=== PATIENT | male | born 1955 | race Caucasian/White ===

== ENCOUNTER 2016-11-01 14:30 | Inpatient (IN) | payer BC ==
[~2016-11-01] VITALS: Ht 175.3 cm; Wt 90.8 kg
--- NOTE | ~2016-11-01 | ENPV ---
Vascular Lower Extremity Vein Mapping and Lower Extremities DVT Study Procedure Demographics Patient Name DAVID MCKEON Date of Study 11/02/2016 Patient Number [id number] Gender Male Date of 1955 Age 61 Visit Number [id number] Height 69 Accession Number [id number] Weight 206.35 Referring Vinh Byrne Interpreting Efstratiou [employer] Physician DO Physician A Physician Ordering Efstrati[employer] Attendant Physician A Photovoltaic Subcontractor Víctor Villalobos, T Conclusions Summary No evidence of deep vein thrombosis or superficial thrombus in bilateral lower extremities. Bilateral greater saphenous veins are patent and suitable for harvesting Procedure Type of Study: Veins:Lower Extremity Vein Mapping, Vein Mapping, Lower Extremities DVT Study, Venous Duplex Lower Extremity Bilateral. Indications for Study:Pre-op CABG, Pre-op evaluation and Pre-op for vein harvesting. Appropriate Use Criteria:7 Allergies - Other:(Cefadroxil). Patient Status:Routine. Study Location:Inpatient Portable. Technical Quality:Adequate visualization. Risk Factors - The patient's risk factor(s) include: dyslipidemia and treated arterial hypertension. - The patient's last creatinine was 0.9 mg/dl. Velocities are measured in cm/s ; Diameters are measured in cm Right Lower Extremities DVT Study Measurements Right 2D and Doppler Measurements + + + + +------+------+ + !Location !Visualized!Compressibility!Thrombosis!Signal!Reflux!Reflux ! ! ! ! ! ! ! !(sec) ! + + + + +------+------+ + !GSV Thigh !Yes !Yes !None !Phasic!No ! ! + + + + +------+------+ + !Common !Yes !Yes !None !Phasic!No ! ! !Femoral ! ! ! ! ! ! ! + + + + +------+------+ + !Prox !Yes !Yes !None !Phasic!No ! ! !Femoral ! ! ! ! ! ! ! + + + + +------+------+ + !Mid Femoral!Yes !Yes !None !Phasic!No ! ! + + + + +------+------+ + !Dist !Yes !Yes !None !Phasic!No ! ! !Femoral ! ! ! ! ! ! ! + + + + +------+------+ + !Popliteal !Yes !Yes !None !Phasic!No ! ! + + + + +------+------+ + !Gastroc !Yes !Yes !None ! ! ! ! + + + + +------+------+ + !PTV !Yes !Yes !None ! ! ! ! + + + + +------+------+ + !Peroneal !Yes !Yes !None ! ! ! ! + + + + +------+------+ + Left Lower Extremities DVT Study Measurements Left 2D and Doppler Measurements + + + + +------+------+ + !Location !Visualized!Compressibility!Thrombosis!Signal!Reflux!Reflux ! ! ! ! ! ! ! !(sec) ! + + + + +------+------+ + !GSV Thigh !Yes !Yes !None !Phasic!No ! ! + + + + +------+------+ + !Common !Yes !Yes !None !Phasic!No ! ! !Femoral ! ! ! ! ! ! ! + + + + +------+------+ + !Prox !Yes !Yes !None !Phasic!No ! ! !Femoral ! ! ! ! ! ! ! + + + + +------+------+ + !Mid Femoral!Yes !Yes !None !Phasic!No ! ! + + + + +------+------+ + !Dist !Yes !Yes !None !Phasic!No ! ! !Femoral ! ! ! ! ! ! ! + + + + +------+------+ + !Popliteal !Yes !Yes !None !Phasic!No ! ! + + + + +------+------+ + !Gastroc !Yes !Yes !None ! ! ! ! + + + + +------+------+ + !PTV !Yes !Yes !None ! ! ! ! + + + + +------+------+ + !Peroneal !Yes !Yes !None ! ! ! ! + + + + +------+------+ + Velocities are measured in cm/s ; Diameters are measured in cm + ++--------++--------+ !Superficial - Great Saphenous Vein !!Right !!Left ! + ++--------++--------+ !Location !!Diameter!!Diameter! + ++--------++--------+ !Sapheno Femoral Junction !!0.51 !!0.44 ! + ++--------++--------+ !GSV High Thigh !!0.41 !!0.4 ! + ++--------++--------+ !GSV Mid Thigh !!0.34 !!0.3 ! + ++--------++--------+ !GSV Low Thigh !!0.36 !!0.3 ! + ++--------++--------+ !GSV Knee !!0.29 !!0.36 ! + ++--------++--------+ !GSV High Calf !!0.27 !!0.19 ! + ++--------++--------+ !GSV Mid Calf !!0.32 !!0.14 ! + ++--------++--------+ !GSV Low Calf !!0.2 !!0.2 ! + ++--------++--------+ - Number of vein branches on the right side:2 above knee and 3 below knee. - Number of vein branches on the left side:1 above knee and 1 below knee. Signature dtt: Christa Mendoza dtd: 11/02/16 1434 Physician Self Edit
--- NOTE | ~2016-11-01 | CON ---
PATIENT'S NAME: MIKE [facility] AGE: 61 Y [address] ROOM: [address] [place], [place] [address] LOCATION: GPCU ADMIT DATE: 11/01/2016 Consultation DISCHARGE DATE: FAMILY PHYSICIAN: Siddharth Driver MD ATTENDING PHYSICIAN: Christa Mendoza DATE OF CONSULTATION: 11/02/2016 REFERRING PHYSICIAN: Davie Sanabria DO REQUESTING PHYSICIAN: Christa Mendoza MD. REASON FOR CONSULTATION: Multivessel coronary artery disease/non-STEMI. HISTORY OF PRESENT ILLNESS: The patient is a 61-year-old white male from [place], [place], with a known history of severe coronary artery disease with prior myocardial infarctions x4, with admission today with a non-STEMI. This is a gentleman who has been experiencing, over the last 2 weeks, symptoms of severe heartburn. He has also had an increase in his shortness of breath. This shortness of breath has been ongoing for several months, but has worsened over the last few weeks. The patient had recently undergone a lumbar surgery with Dr. Carreno. He had no issues postoperatively and has been a couple of weeks in the postoperative phase. He really had not experienced much for chest pain, chest pressure, or palpitations. He was admitted by Dr. Mendoza with findings of increase in his troponin and given his symptomatology with shortness of breath, and further workup. He underwent a cardiac catheterization with findings of 100% occluded right and 4 of the left-sided arteries at greaterthan 90% occlusion. EF is at about 35%. Given the severity, Dr. Mendoza recommended the patient be seen in consultation by Cardiothoracic Surgery to discuss surgical revascularization. PAST MEDICAL HISTORY: Illnesses: Dyslipidemia, coronary artery disease, nephrolithiasis, prior myocardial infarction x5, ischemic cardiomyopathy, GERD/heartburn, osteoarthritis, and dyspnea on exertion. SURGERY/PROCEDURES: Previous percutaneous intervention with stent placement to LAD and RCA, bilateral carpal tunnel release, hiatal hernia repair, left knee scope, lumbar surgery in September 2016, left C6/C7 posterior foraminotomy, and AICD placement. ALLERGIES: HE HAS AN INTOLERANCE TO CEFADROXIL, WHICH CAUSES NAUSEA AND VOMITING. PATIENT'S NAME: ZYWIEC, [facility] AGE: 61 Y [address] ROOM: [address] [place], [place] [address] [facility] ADMIT DATE: 11/01/2016 Consultation DISCHARGE DATE: FAMILY PHYSICIAN: Siddharth Driver MD ATTENDING PHYSICIAN: Christa Mendoza SOCIAL HISTORY: The patient resides in [place], [place]. 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 He is . He has a significant other. He has grown children. He has history of having smoked for approximately 10 years, he quit 17 years ago, he did smoke a pack and half of cigarettes a day. He occasionally drinks alcohol. FAMILY HISTORY: Significant for his father having from a myocardial infarction at age 39. His mother does have history with dementia, she is still alive. His brother at age 40 from a myocardial infarction. On his dad's side of the family, most of the angles and cousins have perished as a result of sudden myocardial infarction. HOME MEDICATIONS: 1. Aspirin 81 mg daily. 2. Nexium 20 mg daily. 3. Ibuprofen 800 mg b.i.d. 4. Melatonin 10 mg at h.s. 5. Tramadol 25 mg q.8 hours. SYSTEM REVIEW: GENERAL: No change in weight or appetite. No fever, chills, or sweats. No excessive fatigue. The patient has felt that he has been able to do his job with relatively no issues. He has not had a lot of excessive stress. He has noticed, however, more progressive dyspnea. HEENT: Does have some age-related vision changes. Does wear glasses. No hearing complaints. No difficulty swallowing, change in voice or hoarseness. RESPIRATORY: No unusual cough or wheezing. He is short of breath at times and as previously stated, dyspneic on exertion, which has become progressive. No PND or orthopnea. CARDIOVASCULAR: No overt chest pain, chest pressure, palpitations, that he could attribute to cardiac chest pain, however in hindsight, he has been having what he could think was indigestion. No intermittent claudication. No complaints of persistent lower extremity edema. GI: No ongoing nausea, vomiting, constipation, or diarrhea. He has been having some reflux and heartburn symptoms here recently. He does take ibuprofen pretty routinely. : Has a history of kidney stones. MUSCULOSKELETAL: Does have ongoing back, neck, and hip pain, and has had previous back and neck surgery. He does not require assistive devices for ambulation. NEUROLOGIC: No frequent or severe headaches. No history of seizures, memory loss, or syncope. He does have some left-sided numbness and tingling in his PATIENT'S NAME: DAVID MCKEON [facility] AGE: 61 Y [address] ROOM: [address] [address] [facility] ADMIT DATE: 11/01/2016 Consultation DISCHARGE DATE: FAMILY PHYSICIAN: Siddharth Driver MD ATTENDING PHYSICIAN: Christa Mendoza left hand. ENDOCRINE: No history of diagnosed thyroid or diabetic conditions. INTEGUMENT: No known skin diseases. PHYSICAL EXAMINATION: VITAL SIGNS: Blood pressure is 120/79, pulse 66, respirations 20, temperature is 97.6, and O2 saturations 95% on room air. His weight 93.6 kg, height is 175.3 cm. GENERAL: He is very pleasant. He is in no acute distress. He is a bit anxious regarding the procedure that he is eager to move forward. He appears his stated age. HEENT: Normocephalic. EOMs intact. Conjunctivae clear. NECK: No palpable lymphadenopathy or thyromegaly. LUNGS: Clear to auscultation to the anterior and bilaterally. CARDIOVASCULAR: Regular rate and rhythm. ABDOMEN: Soft, nontender by 4 quadrants with positive bowel sounds throughout. The patient has a healed surgical site to his back. EXTREMITIES: No overt varicosities or edema. MUSCULOSKELETAL: Good range of motion of bilateral upper and lower extremities. NEUROLOGIC: Alert and oriented with symmetrical strength. SKIN: No suspicious skin lesions. LABORATORY AND TEST RESULTS: Cardiac catheterization is as per HPI. BMP: Sodium is 140, potassium is 3.9, BUN is 18, creatinine is 1.0, GFR is at 82. His TSH is 3.120. ProBNP is 351. Troponin I 0.220, his CK-MB is 1.7, his CPK is 105. CBC: WBC 11.6, hemoglobin 15.5, hematocrit 44.7, and platelets 193. IMPRESSION: 1. Non-ST elevation myocardial infarction with prior history of myocardial infarctions and coronary artery disease, severe. 2. Ischemic cardiomyopathy with reduced ejection fraction and history of implantable cardioverter-defibrillator placement, for which we will obtain interrogation of the implantable cardioverter-defibrillator. 3. Dyspnea on exertion. RECOMMENDATION AND PLAN: Dr. Sanabria reviewed the cardiac catheterization. Per review, the patient will require a 5-vessel bypass. Risks and benefits of the procedure were discussed. Discussion of the risks includes but were not limited to, bleeding, requiring transfusion, return to the operative suite, myocardial infarction, cerebrovascular accident, renal and/or pulmonary failure. Also discussed were operative and postoperative mortality as well as arrhythmias and infection. PATIENT'S NAME: DAVID MCKEON [facility] AGE: 61 Y [address] ROOM: [place] [address] [facility] ADMIT DATE: 11/01/2016 Consultation DISCHARGE DATE: FAMILY PHYSICIAN: Siddharth Driver MD ATTENDING PHYSICIAN: Christa Mendoza The patient verbalizes understanding of the surgical risks and benefits. Length of stay as well as restrictions thereafter were discussed. We will plan the preoperative evaluation today with surgery for November 03, 2016. We would like to thank Dr. Mendoza for allowing us to participate in the care of this very pleasant gentleman. FELIICANO SEPULVEDA APRN FOR DAVIE SANABRIA, DLQ/modl /[id number] d: 11/02/16 1950 t: 11/14/16 0826, CONSULTATION REPORT
--- NOTE | ~2016-11-01 | CATH ---
Cardiac Diagnostic Report Demographics Patient Name MIKE Juárez Gender Male Date of 1955 Age 61 year(s) Patient Number [id number] Date of Study 11/01/2016 Visit Number [id number] Room Number G62[address] [place] [id number] Ht 175.26 cm Wt 93.6 kg Referring [facility] Harjeet Primary Physician Physician Performing Efstratiou Secondary Physician Physician Cathy Howard MD Diagnostic Efstratiou Assisting Physician Physician Cathy Howard MD Interventional Physician Erp Implementation Consultant Physician Findings and Conclusions Diagnostic Findings and Conclusion 1. Mild MR. 2. Severe diffuse 3 vessel CAD with LV dysfunction. Diagnostic Recommendations 1. CABG. Procedure Description The patient was brought to the diagnostic cardiac catheterization-EP laboratory in the fasting, non-sedated state. Informed consent was obtained in the written and verbal form after the risks and benefits were explained. The patient had no further questions and agreed to proceed. The planned puncture-incision site(s) were shaved and prepped with ChloraPrep and draped in the usual sterile manner. Conscious sedation, supplemental oxygen, and pain control medications were delivered by a registered nurse under physician guidance. Surface ECG rhythm, blood pressure measurement, and pulse oximetry were monitored throughout the procedure. Arterial access. The access site was infiltrated with lidocaine. The vessel was entered with the Seldinger technique. A sheath was advanced into the vessel and used for catheter placement. Selective left coronary angiography. A catheter was advanced into the left coronary vessel ostium under Fluoroscopic guidance. Contrast was injected by hand. Images were obtained in multiple projections. Selective right coronary angiography. A catheter was advanced into the right coronary vessel ostium under fluoroscopic guidance. Contrast was injected by hand. Images were obtained in multiple projections. Left heart catheterization with ventriculography. A catheter was advanced across the aortic valve to the left ventricle under fluoroscopic guidance. Resting hemodynamics were obtained. With the catheter at the left ventricular apex, contrast was injected. Images were obtained in PERSIAN projections. Post-ventriculography LV pressure was obtained. The catheter was gradually withdrawn into the aorta with continuous pressure recording. Arterial artery hemostasis was achieved. The patient was transferred to a regular nursing floor via cart accompanied by a nurse. The patient left the laboratory in stable condition. Diagnostic Cath Status: Urgent Procedure Procedure Type Diagnostic procedure:Ventriculogram:, Left, Angiography:, C Indications: NSTEMI. The procedure was explained in detail to the patient. Risks, complications and alternative treatments were reviewed. Written consent was obtained. Medications Reviewed with Patient prior to Procedure. Angiographic Findings Dominance: Right Cardiac Arteries and Lesion Findings LMCA: Normal (0% Stenosis). LAD: Abnormal.There is a previous stent on Prox LAD Proximal subsection. Lesion on Prox LAD: Proximal subsection.90% stenosis . Pre procedure DAGOBERTO I flow was noted. A poor run off was present. Lesion on 1st Diag: Proximal subsection.95% stenosis . Pre procedure DAGOBERTO I flow was noted. A poor run off was present. LCx: Abnormal. Lesion on Mid CX: Mid subsection.70% stenosis . Pre procedure DAGOBERTO I flow was noted. A poor run off was present. Lesion on 1st Ob Jodee: Proximal subsection.95% stenosis . Pre procedure DAGOBERTO I flow was noted. A good run off was present. Lesion on 2nd Ob Jodee: Proximal subsection.95% stenosis . Pre procedure DAGOBERTO I flow was noted. A poor run off was present. Lesion on Dist CX: Distal subsection.95% stenosis . Pre procedure DAGOBERTO I flow was noted. A poor run off was present. RCA: Abnormal.There is a previous stent on Prox RCA Proximal subsection. Lesion on Prox RCA: Proximal subsection.100% stenosis . Pre procedure DAGOBERTO 0 flow was noted. A poor run off was present. Coronary Tree Procedure Data Procedure Date Date: 11/01/2016Start: 05:21 PMEnd: 06:09 PM Entry Locations - Retrograde Percutaneous access was performed through the Right Radial artery (Primary location). A 6 Fr sheath was inserted. Hemostasis was successfully obtained using an R band. Closure Comments: 13 cc of air in the R band placed by Preethi Chavira.. Procedure Medications Order and Administration + + +-------+-------+ !Time !Medication !Dosage !Route ! + + +-------+-------+ !11/01/2016 !Fentanyl !50 mcg !I.V. ! !05:19 PM ! ! ! ! + + +-------+-------+ !11/01/2016 !Versed !1 mg !I.V. ! !05:19 PM ! ! ! ! + + +-------+-------+ !11/01/2016 !PAE Radial Cocktail: Heparin 5000 units, ! !I.A. ! !05:22 PM !Nitroglycerin 200mcg, Verapamil 3 mg ! ! ! ! !(ACC_3) ! ! ! + + +-------+-------+ Devices Used - A6 Fr. BS JR 4 Diag. Catheterwas used for:Right coronary angiography. - A6 Fr. BS JL 3.5 Diag. Catheterwas used for:Left coronary angiography. - A6 Fr. BS Angled Pigtail Diag. Catheterwas used for:Left ventriculography. Contrast Material - Isovue 54169 ml Fluoroscopy Time: Diagnostic: 4:42 minutes. Total: 4:42 minutes. Fluoroscopy Dose: Diagnostic: 807 mGy. Total: 807 mGy. Estimated Blood Loss: 15 ml. Medical History Performed Procedures and Imaging Results - No ACC stress or imaging studies were performed. Allergies - Other:(Cefadroxil). Risk Factors The patient risk factors include:prior PCI;treated hypertension, family history of premature CAD, last creatinine: 0.9 mg/dl, creatinine clearance: 117 ml/min and dyslipidemia. Admission Data Admission Date: 11/01/2016 Admission Time: 03:09 PM Admit Source: Transfer acute care facility Insurance Payors: Private health insurance. Admission Medications + +------+-------+ + + + + !Medication!Dosage!Times !Last !Last !Administered !Comments ! ! ! !Per Day!Delivery !Delivery ! ! ! ! ! ! !Date !Time ! ! ! + +------+-------+ + + + + !Aspirin ! ! ! ! !Yes ! ! !(any) ! ! ! ! ! ! ! + +------+-------+ + + + + Clinical Evaluation Leading to Procedure - The patient's CAD presentation was assessed as: Non-STEMI. - The patient's anginal syndrome during the past two weeks was assessed as: Class IV according to the [place] Cardiovascular Society Classification System (CCS). - The patient has been in a state of heart failure within the past two weeks. - The patient's heart failure status was assessed as NYHA Class II, with CHF symptoms of SALAZAR. VA Ventriculography Findings LV mildly to moderately dilated EF 25%. Akinetic to mildly dyskinetic apex. Inferobasal wall contracts well. LV function assessed . Snapshots Hemodynamics Condition: Rest O2 Consumption: Estimated: 246.11Heart Rate: 70 bpm Pressures (mmHg) +-----+ + !Site !Pressure ! +-----+ + !LV !108/-2 ,1 ! +-----+ + !LV !110/-2 ,0 ! +-----+ + !AO !100/66 (81) ! +-----+ + !LV !110/-2 ,1 ! +-----+ + !AO !99/65 (80) ! +-----+ + Valve Gradients and Areas + +---------+---------+---------+ +---------+ + !Valve !Peak !Mean !Area !Index !Flow !Source ! + +---------+---------+---------+ +---------+ + !Aortic !10 !8 ! ! ! ! ! + +---------+---------+---------+ +---------+ + !Aortic !10 !8 ! ! ! ! ! + +---------+---------+---------+ +---------+ + Shunts Oxygen Values O2 Capacity 221.68 O2 Consumption 246.11 Signatures dtt: Christa Mendoza dtd: 11/01/16 1721 Physician Self Edit
--- NOTE | ~2016-11-01 | OR ---
PATIENT'S NAME: DAVID MCKEON [facility] AGE: 61 Y [address] ROOM: [address] [address] LOCATION: GPCU ADMIT DATE: 11/01/2016 OR/Procedure Report DISCHARGE DATE: 11/09/2016 FAMILY PHYSICIAN: Siddharth Driver MD ATTENDING PHYSICIAN: Christa Mendoza SURGEON: Maddie Stringer MD MANAGER QUANTITATIVE: DATE OF PROCEDURE: 11/03/2016 PROCEDURES PERFORMED: 1. Insertion of central venous catheter. 2. Insertion of arterial line. 3. Insertion of pulmonary arterial catheter. INDICATION FOR PROCEDURE: Hemodynamic monitoring and access while in the operating room. DESCRIPTION OF PROCEDURE: After a brief time-out was completed verifying the correct patient, procedure, site, the patient was placed in the dependent position appropriate for central line placement. The patient's right neck was prepped and draped in the usual sterile fashion. 1 mL of 1% lidocaine was used to anesthetize the surrounding skin. Using the Seldinger technique and under real-time ultrasound guidance, a 9-Dominican, 10-cm introducer was introduced into the patient's right internal jugular vein. The guidewire then was removed. Each lumen of the catheter was evacuated from air and flushed with sterile saline. The catheter then was sutured in place and a sterile Tegaderm applied. Attention was turned to placing the pulmonary arterial catheter which was inserted into the 9-Dominican introducer. The catheter was inserted to 20 cm and the balloon was inflated. The catheter then was advanced to the right atrium and then finally to the right ventricle, and finally into the pulmonary artery, where it was not wedged. Balloon was then deflated. The catheter then was secured into place at 50 cm. Next, the patient's right wrist was prepped and draped in the usual sterile fashion. 1 mL of 1% lidocaine was used to anesthetize the surrounding skin. Using a 20- gauge Arrow catheter, the radial artery was cannulated. The guidewire then was removed. The catheter then was sutured in place and a sterile Tegaderm was applied. Pulses distal to the insertion of the catheter were checked and found to be adequate. The postprocedural chest x-ray was used to confirm the central line, pulmonary artery catheter, and no evidence of complication was noted. MADDIE STRINGER MD PATIENT'S NAME: DAVID MCKEON [facility] AGE: 61 Y [address] ROOM: [place] [address] [facility] ADMIT DATE: 11/01/2016 OR/Procedure Report DISCHARGE DATE: 11/09/2016 FAMILY PHYSICIAN: Siddharth Driver MD ATTENDING PHYSICIAN: Christa Mendoza/joyce /[id number] d: 11/10/16 1335 t: 11/13/16 1646, OPERATIVE SUMMARY
--- NOTE | ~2016-11-01 | HP ---
PATIENT'S NAME: DAVID MCKEON [facility] AGE: 61 Y [address] ROOM: [address]6310 [place], [place] [address] [facility] ADMIT DATE: 11/01/2016 History & Physical DISCHARGE DATE: FAMILY PHYSICIAN: PHYSICIAN, UNKNOWN ATTENDING PHYSICIAN: Kiel Browning DATE OF SERVICE: HISTORY OF PRESENT ILLNESS: The patient is a 61-year-old male with chest pain and elevated troponin, who is transferred from [facility]. The patient says that about two weeks ago, he had lower back surgery by Dr. Carreno and preoperatively, his aspirin was stopped for about a week. He was back on his regular medications. He says that he has been several months on tramadol following a previous C-spine surgery and he was trying to wean himself off. He says that he had read that part of the weaning process from tramadol could be heartburn so he first started experiencing "he thought it was heartburn a few days ago," and for the past two days, he was also started on esomeprazole, but today he realized that his symptoms were most likely "angina," he had experience in the past when he had per his own recollection four heart attacks and three stent placements. He mentioned the substernal discomfort to Dr. Carreno and he was sent to [facility]. Because the patient's certified control systems technician is Dr. Garcia, whom he sees in [place], he requested to be transferred to a Facility. REVIEW OF SYSTEMS: With the exception of what is noted in the History of Present Illness is negative. 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 He never smoked. Does not use any alcohol. He is with three grown children and two grandchildren. PAST SURGICAL HISTORY: As mentioned in the History of Present Illness. MEDICATIONS: His outpatient medications include: 1. Aspirin 81 mg daily. 2. Esomeprazole 20 mg daily. 3. Melatonin 10 mg daily. 4. Tramadol 50 mg taking half a tablet every 8 hours. 5. Ibuprofen 200 mg to 800 mg twice a day. PATIENT'S NAME: DAVID MCKEON [facility] AGE: 61 Y [address] ROOM: [facility] [place], [place] [address] [facility] ADMIT DATE: 11/01/2016 History & Physical DISCHARGE DATE: FAMILY PHYSICIAN: PHYSICIAN, UNKNOWN ATTENDING PHYSICIAN: Kiel Browning ALLERGIES: THE PATIENT REPORTS INTOLERANCE TO EVERY STATIN THAT HE HAS TRIED. PAST SURGICAL HISTORY: Also includes placement of cardioverter-defibrillator about 7 to 8 years ago, and he remembers that he was told that his ejection fraction was 25%. He is not on a beta donovan or DU inhibitor. He told me that his previous certified control systems technician, Dr. Ross stopped all his other medications several years ago. PHYSICAL EXAMINATION: VITAL SIGNS: He is a pleasant middle-aged man. Height 5 feet 9 inches tall, weighs 93.6 kg. Blood pressure is 145/88, pulse 84, and temperature 98.2. GENERAL: He is alert and oriented. SKIN: Warm and dry. HEAD: Normocephalic and atraumatic. NECK: Supple. There is no jugular venous distention. No carotid bruits. HEART: Regular with a 4th heart sound. No significant murmur. ABDOMEN: Moderately obese, nontender. CHEST: Lungs are clear to auscultation. EXTREMITIES: Lower extremities; no peripheral edema. Dorsalis pedis pulses are 2+. DIAGNOSTIC STUDIES: Electrocardiogram shows sinus rhythm, previous anterior myocardial infarction. No acute changes. A complete metabolic screen here showed a potassium of 3.9, BUN 18, and creatinine 0.9. Cholesterol 234, HDL 41, and LDL 151. WBC 12.9, hemoglobin 16.3, hematocrit 46.4, and platelets 217,000. His cardiac enzymes were not measured as I ordered, but they were measured at [facility], and CK-MB was normal, troponin I was 0.1 and upper normal is 0.03. IMPRESSION AND PLAN: Unstable angina/nic-YO-selmmrkgt myocardial infarction in a patient with previous apparently multi-vessel coronary artery disease with ischemic cardiomyopathy, and indwelling cardioverter-defibrillator. We will proceed with cardiac catheterization, percutaneous intervention as needed. Postoperatively, I will treat him for his ischemic cardiomyopathy per guidelines. We will check an echocardiogram in the a.m. If he has a significant progression of his coronary artery disease, we will have to see if he can qualify for PCSK9 treatment of his dyslipidemia. Thank you for allowing me to participate in the care of your patient. PATIENT'S NAME: DAVID MCKEON [facility] AGE: 61 Y [address] ROOM: [id number] [place] [id number] LOCATION: [facility] ADMIT DATE: 11/01/2016 History & Physical DISCHARGE DATE: FAMILY PHYSICIAN: PHYSICIAN, UNKNOWN ATTENDING PHYSICIAN: Kiel Browning KIEL BROWNING MD PE/joyce /[id number] D: [id number] T: [id number] HISTORY & PHYSICAL
--- NOTE | ~2016-11-01 | OR ---
PATIENT'S NAME: DAVID MCKEON [facility] AGE: 61 Y [address] ROOM: [address] [address] LOCATION: [facility]PCU ADMIT DATE: 11/01/2016 OR/Procedure Report DISCHARGE DATE: 11/09/2016 FAMILY PHYSICIAN: Siddharth Driver MD ATTENDING PHYSICIAN: Christa Mendoza SURGEON: Davie Justice DO FRAMING AND HANGING: DATE OF PROCEDURE: 11/03/2016 PREOPERATIVE DIAGNOSIS: Coronary artery disease. POSTOPERATIVE DIAGNOSIS: Coronary artery disease. SECONDARY DIAGNOSES: Includes chronic ischemic cardiomyopathy, ejection fraction 20%. PROCEDURE PERFORMED: Coronary artery bypass grafting x5, left internal mammary artery to the left anterior descending, reverse saphenous vein graft to obtuse marginal #1, reverse saphenous vein graft to obtuse marginal #2, reverse saphenous vein graft to obtuse marginal #3, reverse saphenous vein graft to the posterior descending artery. REFERRING PHYSICIAN: Christa Mendoza M.D. BRIEF HISTORY: Mr. Mckeon is a 61-year-old white male with the above-noted diagnosis. He has been brought to the operative suite today after an informed consent was obtained for this procedure. He was sterilely prepped and draped in usual fashion for a sternotomy with lower extremity vein harvest. A sternal incision was made and the sternum was divided in the midline with sternal saw. Ostene and electrocautery were used for hemostasis along the marrow and sternal edges. Concurrently to this, saphenous vein was harvested endoscopically from the lower extremity. Mammary retractor was placed. The left internal mammary artery was identified and then harvested utilizing surgical clips and electrocautery. Prior to its division, the patient was fully heparinized and the mammary was then divided and prepared for bypass. Mammary retractor was then removed and a sternal retractor was placed. The pericardium was opened and a pericardial well was created. Cannulation sutures were placed in the ascending aorta and right atrium for bypass and cardioplegia cannulas, and the patient was cannulated and connected to bypass pump without difficulty. The vein was then prepared for bypass. An adequate ACT had been previously achieved and now cardiopulmonary bypass was initiated. Crossclamp was applied. Antegrade and retrograde cardioplegia were given, along with topical cold saline, the heart arrested without difficulty. Posterior descending artery was identified and an end-to-side vein graft PATIENT'S NAME: DAVID MCKEON [facility] AGE: 61 Y [address] ROOM: [address] [place], [place] [address] LOCATION: [facility]PCU ADMIT DATE: 11/01/2016 OR/Procedure Report DISCHARGE DATE: 11/09/2016 FAMILY PHYSICIAN: Siddharth Driver MD ATTENDING PHYSICIAN: Christa Mendoza anastomosed to this with 7-0 Prolene. It was sized appropriately and connected to the cardioplegia system. Another 500 mL of vein graft and retrograde cardioplegia were given. This was done after each venous distal anastomosis. Similar venous distal anastomoses were then created to each of the obtuse marginal arteries, and then left internal mammary artery was anastomosed to the left anterior descending artery, again in an end-to-side fashion with 7-0 Prolene. With this completed, the bulldog was removed from the internal mammary artery and distal flow was noted as well as an intact anastomosis. The cross-clamp was now removed and a partial occlusion clamp was applied. Our vein grafts were then anastomosed to the ascending aorta with 4-0 punch and 6-0 Prolene. During this time period of partial occlusion, warm blood was given in retrograde fashion, also down the vein grafts. We then removed our partial occlusion clamp and de-aired the grafts, removed the bulldogs, and distal flow was given. The remaining 2 grafts, one was anastomosed with a 4.3 heartstring and 6-0 Prolene and the other was performed in an end-to-side [id number]-xy-ewxn fashion with 7-0 Prolene. Once all vein grafts were created and distal flow was given, we began ventilation and began weaning from cardiopulmonary bypass. We weaned from bypass without difficulty, venous cannula was removed and appropriate volume returned from the pump to the patient. Aortic cannula was now removed and protamine was given. All cannulation sites and distal sites and proximal sites were hemostatic. 2 atrial and 1 ventricular temporary pacemaking wires were placed. 3 chest tubes were placed, 1 left pleural, 1 posterior pericardial, 1 anterior mediastinal. Copious amounts of antibiotic-infused saline was used to irrigate the sternum and mediastinum. Autologous derived growth factor was then instilled into the soft tissues and into the pericardial space and the sternum was approximated with sternal cable system. Soft tissues were then irrigated again and closed in a layered fashion. All instrument, sponge, and needle counts were correct. The patient was transferred to the intensive care unit in stable condition. DO ALLA MORRISON/joyce /[id number] d: 11/16/16 1517 t: 11/18/16 0730, OPERATIVE SUMMARY
--- NOTE | ~2016-11-01 | ENPV ---
Carotid Duplex Study Demographics Patient Name DAVID MCKEON Date of Study 11/02/2016 Patient Number [id number] Gender Male Date of 1955 Age 61 Visit Number [id number] Height 69 Weight 206.35 Number Referring Kelly Morgan Interpreting Kelly Joyotigerry Physician A MD Physician A MD Physician Ordering Bonileopoldotiou Panayotis Dormitory Counselor Physician A Snowmaker Víctor Villalobos, [facility] Conclusions Summary Bilateral proximal internal carotid arteries have mild, 1-39%, stenosis by heterogeneous plaque. Bilateral vertebral arteries are antegrade. Procedure Type of Study: Cerebral:Carotid, Carotid Doppler Bilateral. Indications for Study:Pre-Op CABG and Pre-op evaluation. Appropriate Use Criteria:6 Allergies - Other:(Cefadroxil). Patient Status:Routine. Study Location:Imaging Center. Technical Quality:Adequate visualization. Risk Factors - The patient's risk factor(s) include: dyslipidemia and treated arterial hypertension. - The patient's last creatinine was 0.9 mg/dl. Velocities are measured in cm/s ; Diameters are measured in cm Carotid Right Measurements Carotid Left Measurements + +--------+--------+ + + + +--------+ --------+ + + !Location !PSV !EDV !Angle !%Stenosis ! !Location !PSV ! EDV !Angle !%Stenosis ! + +--------+--------+ + + + +--------+ --------+ + + !Prox CCA !143 !20 !60 ! ! !Prox CCA !96 ! 14 !38 ! ! + +--------+--------+ + + + +--------+ --------+ + + !Dist CCA !88 !19 !60 ! ! !Dist CCA !85 ! 20 !60 ! ! + +--------+--------+ + + + +--------+ --------+ + + !Prox ICA !62 !17 !58 !1-39% ! !Prox ICA !57 ! 17 !60 !1-39% ! + +--------+--------+ + + + +--------+ --------+ + + !Dist ICA !41 !11 !54 ! ! !Dist ICA !48 ! 19 !42 ! ! + +--------+--------+ + + + +--------+ --------+ + + !Prox ECA !100 ! !58 ! ! !Prox ECA !89 ! !60 ! ! + +--------+--------+ + + + +--------+ --------+ + + !Vertebral !33 ! ! ! ! !Vertebral !42 ! !60 ! ! + +--------+--------+ + + + +--------+ --------+ + + !Subclavian !98 ! ! ! ! !Subclavian !173 ! ! ! ! + +--------+--------+ + + + +--------+ --------+ + + - There is antegrade vertebral flow noted on the right side. - There is antegrade verte bral flow noted on the left side. - Add'l Measurements:ICAPSV/CCAPSV 0.44.ICAEDV/CCAEDV 0.86. - Add'l Measurements:ICAPS V/CCAPSV 0.6.ICAEDV/CCAEDV 1.39. Signature dtt: Christa Mendoza dtd: 11/02/16 1422 Physician Self Edit
--- NOTE | ~2016-11-01 | PUL ---
PATIENT'S NAME: DAVID MCKEON [facility] AGE: 61 Y [address] ROOM: [place] [address] LOCATION: GICU ADMIT DATE: 11/01/2016 Pulmonary DISCHARGE DATE: FAMILY PHYSICIAN: JULIA MALIN MD ATTENDING PHYSICIAN: Christa Mendoza NAME OF PROCEDURE: Bedside spirometry DATE OF PROCEDURE: November 02, 2016 TECH: CRISTINE Parekh REASON FOR EXAM: Pre-surgical evaluation PROCEDURE PERFORMED: Spirometry with bronchodilator assessment. RESULTS: The pre bronchodilator FVC was 3.92 liters or 85% of predicted, pre bronchodilator FEV1 was 3.08 liters or 88% of predicted; FEV1/FVC was 78.6% or 104% of predicted. This data did not change significantly following inhaled bronchodilator. PHYSICIAN INTERPRETATION: The above spirometry data are most compatible with normal spirometry. MD ALIYA BERNARDO/[place]field /[id number] dtt: 11/03/16 1636 PAN MEENAKSHI dtd: 11/03/16 0945
[~2016-11-01 14:30] MED LIST: ADVIL200 MG PO; ASPIRIN EC81 MG PO; EXTRA STRENGTH500 MG PO; ULTRAM50 MG PO
[2016-11-01] MEDS ORDERED: NEXIUM 24HR20 M1 PO (15:22)
[2016-11-01] MEDS ORDERED: MELATONIN10 M2 PO (15:24)
[2016-11-01 16:09] LABS: BASOPHIL # 0.1 K/uL (0.0-0.2); BASOPHIL % 0.7 %; EOSINOPHIL # 0.3 K/uL (0.0-0.5); EOSINOPHIL % 2.1 %; HEMATOCRIT 46.4 % (37.0-53.0); HEMOGLOBIN 16.3 g/dL (12.0-17.0); IMMATURE GRANULOCYTE # 0.1 K/uL (0.0-0.3); IMMATURE GRANULOCYTE % 0.9 %; LYMPHOCYTE # 2.5 K/uL (0.8-4.0); LYMPHOCYTE % 19.8 %; MCHC 35.1 gm/dL (32.0-36.5); MCV 88.4 fl (83.0-98.0); MONOCYTE # 0.8 K/uL (0.0-1.0); MONOCYTE % 6.1 %; MPV 10.6 fl (9.4-12.4); NEUTROPHIL # (ANC) 9.1 K/uL (1.4-9.0); NEUTROPHIL % 70.4 %; NRBC % 0 /100WBC (0-0.00); PLATELET COUNT 217 K/uL (150-450); RBC 5.25 M/uL (4.00-6.00); RDW-CV 12.4 % (11.9-14.6); WBC 12.9 K/uL (4.0-11.0)
[2016-11-01 16:17] LABS: INR - (THERAPEUTIC) 0.95 (0.92-1.07); PTT 31 SECONDS (25-32)
[2016-11-01 16:27] LABS: ALBUMIN 3.7 gm/dL (3.5-5.0); ALK PHOS 76 IU/L (33-138); ALT 45 IU/L (12-78); ANION GAP 12.9 (10.0-19.0); AST 21 IU/L (10-40); BLOOD UREA NITROGEN 18 mg/dL (6-24); CALCIUM 8.6 mg/dL (8.5-10.5); CHLORIDE 107 mMol/L (96-110); CO2 24 mMol/L (22-32); CREATININE 0.9 mg/dL (0.6-1.3); POTASSIUM 3.9 mMol/L (3.7-5.1); SODIUM 140 mMol/L (135-145); TOTAL BILIRUBIN 0.5 mg/dL (0.0-1.5); TOTAL PROTEIN 7.1 g/dL (6.0-8.4)
[2016-11-02 04:36] LABS: BASOPHIL # 0.1 K/uL (0.0-0.2); BASOPHIL % 0.6 %; EOSINOPHIL # 0.3 K/uL (0.0-0.5); EOSINOPHIL % 2.2 %; HEMATOCRIT 44.7 % (37.0-53.0); HEMOGLOBIN 15.5 g/dL (12.0-17.0); IMMATURE GRANULOCYTE # 0.1 K/uL (0.0-0.3); IMMATURE GRANULOCYTE % 0.9 %; LYMPHOCYTE # 2.7 K/uL (0.8-4.0); LYMPHOCYTE % 23.7 %; MCH 31.1 pg (27.0-34.0); MCHC 34.7 gm/dL (32.0-36.5); MCV 89.6 fl (83.0-98.0); MONOCYTE # 0.7 K/uL (0.0-1.0); MPV 10.2 fl (9.4-12.4); NEUTROPHIL # (ANC) 7.7 K/uL (1.4-9.0); NEUTROPHIL % 66.6 %; NRBC % 0 /100WBC (0-0.00); PLATELET COUNT 193 K/uL (150-450); RBC 4.99 M/uL (4.00-6.00); RDW-CV 12.5 % (11.9-14.6); WBC 11.6 K/uL (4.0-11.0)
[2016-11-02 04:56] LABS: ANION GAP 10.9 (10.0-19.0); CALCIUM 8.9 mg/dL (8.5-10.5); POTASSIUM 3.9 mMol/L (3.7-5.1)
[2016-11-02 09:49] LABS: BICARBONATE 23.9 mmol/L (18.0-23.0); PCO2 36 mmHg (35-45); PO2 71 mmHg (80-90)
[2016-11-02 13:43] LABS: BILIRUBIN URINE NEGATIVE (NEGATIVE); BLOOD URINE NEGATIVE /UL (NEGATIVE); COLOR URINE YELLOW (YELLOW); GLUCOSE URINE NEGATIVE (NEGATIVE); KETONE URINE NEGATIVE (NEGATIVE); LEUKOCYTES URINE 25 /UL (NEGATIVE); NITRITE URINE NEGATIVE (NEGATIVE); PROTEIN URINE NEGATIVE (NEGATIVE); TURBIDITY URINE CLEAR (CLEAR); UROBILINOGEN URINE NORMAL (NORMAL)
[2016-11-02 13:56] LABS: BACTERIA URINE RARE (NEGATIVE); EPITHELIAL URINE NEGATIVE #/HPF (NEGATIVE); MUCUS URINE 1+ (NEGATIVE); RBC URINE NEGATIVE #/HPF (NEGATIVE); WBC URINE RARE #/HPF (NEGATIVE)
[2016-11-03 13:08] LABS: HEMOGLOBIN 9.4 g/dL (12.0-17.0); MCV 89.7 fl (83.0-98.0); MPV 10.2 fl (9.4-12.4); RDW-CV 12.4 % (11.9-14.6)
[2016-11-03 13:14] LABS: HEMATOCRIT 26.9 % (37.0-53.0); MCH 31.3 pg (27.0-34.0); MCHC 34.9 gm/dL (32.0-36.5); PLATELET COUNT 136 K/uL (150-450); WBC 29.1 K/uL (4.0-11.0)
[2016-11-03 13:22] LABS: PTT 38 SECONDS (25-32)
[2016-11-03 13:23] LABS: PROTIME 14.7 SECONDS (9.8-11.4)
[2016-11-03 13:39] LABS: ALPHA ANGLE 66 degrees; ALPHA ANGLE 67 degrees (70-81); CLOT FORMATION TIME 127 seconds; CLOTTING TIME 288 seconds; CLOTTING TIME 75 seconds (43-82); MAXIMUM CLOT FIRMNESS 53 mm; MAXIMUM CLOT FIRMNESS 56 mm (51-72); MAXIMUM LYSIS 0 %
[2016-11-03 13:47] LABS: BICARBONATE 26.9 mmol/L (18.0-23.0); PCO2 43 mmHg (35-45); PO2 345 mmHg (80-90); SODIUM 138 mEq/L (135-145)
[2016-11-03 13:49] LABS: BICARBONATE 31.9 mmol/L (18.0-23.0); PCO2 53 mmHg (35-45); PO2 302 mmHg (80-90)
[2016-11-03 13:50] LABS: PCO2 50 mmHg (35-45); PO2 263 mmHg (80-90)
[2016-11-03 13:50] LABS: POTASSIUM 5.6 mEq/L (3.7-5.1); SODIUM 134 mEq/L (135-145)
[2016-11-03 13:51] LABS: BICARBONATE 26.2 mmol/L (18.0-23.0); PCO2 48 mmHg (35-45); PO2 218 mmHg (80-90)
[2016-11-03 13:51] LABS: POTASSIUM 5.7 mEq/L (3.7-5.1); SODIUM 135 mEq/L (135-145)
[2016-11-03 13:52] LABS: SODIUM 139 mEq/L (135-145)
[2016-11-03 14:09] LABS: BICARBONATE 24.8 mmol/L (18.0-23.0); PCO2 47 mmHg (35-45)
[2016-11-03 14:10] LABS: PO2 74 mmHg (80-90)
[2016-11-03 14:25] LABS: ANION GAP 12.5 (10.0-19.0); CALCIUM 8.9 mg/dL (8.5-10.5); POTASSIUM 4.5 mMol/L (3.7-5.1)
[2016-11-04 04:13] LABS: BICARBONATE 27.3 mmol/L (18.0-23.0); PCO2 44 mmHg (35-45); PO2 60 mmHg (80-90)
[2016-11-04 04:30] LABS: ANION GAP 11.2 (10.0-19.0); CALCIUM 7.6 mg/dL (8.5-10.5); POTASSIUM 4.2 mMol/L (3.7-5.1)
[2016-11-04 04:33] LABS: HEMATOCRIT 24.9 % (37.0-53.0); HEMOGLOBIN 8.6 g/dL (12.0-17.0); MCH 30.9 pg (27.0-34.0); MCHC 34.5 gm/dL (32.0-36.5); MCV 89.6 fl (83.0-98.0); MPV 10.5 fl (9.4-12.4); RBC 2.78 M/uL (4.00-6.00); RDW-CV 13.1 % (11.9-14.6); WBC 14.4 K/uL (4.0-11.0)
[2016-11-05 04:46] LABS: HEMATOCRIT 24.2 % (37.0-53.0); HEMOGLOBIN 8.4 g/dL (12.0-17.0); MCH 31.7 pg (27.0-34.0); MCHC 34.7 gm/dL (32.0-36.5); MCV 91.3 fl (83.0-98.0); MPV 11.4 fl (9.4-12.4); RBC 2.65 M/uL (4.00-6.00); RDW-CV 13.2 % (11.9-14.6)
[2016-11-05 04:47] LABS: WBC 18.7 K/uL (4.0-11.0)
[2016-11-05 05:03] LABS: ANION GAP 11.5 (10.0-19.0); CALCIUM 8.3 mg/dL (8.5-10.5); POTASSIUM 4.5 mMol/L (3.7-5.1)
[2016-11-07 04:31] LABS: BASOPHIL # 0.1 K/uL (0.0-0.2); BASOPHIL % 0.5 %; EOSINOPHIL # 0.2 K/uL (0.0-0.5); EOSINOPHIL % 1.5 %; HEMATOCRIT 23.6 % (37.0-53.0); IMMATURE GRANULOCYTE # 0.3 K/uL (0.0-0.3); IMMATURE GRANULOCYTE % 2.3 %; LYMPHOCYTE # 2.1 K/uL (0.8-4.0); LYMPHOCYTE % 16.1 %; MCH 31.1 pg (27.0-34.0); MCHC 33.9 gm/dL (32.0-36.5); MCV 91.8 fl (83.0-98.0); MONOCYTE # 1.1 K/uL (0.0-1.0); MONOCYTE % 8.4 %; MPV 11.2 fl (9.4-12.4); NEUTROPHIL # (ANC) 9.4 K/uL (1.4-9.0); NEUTROPHIL % 71.2 %; NRBC % 0.7 /100WBC (0-0.00); RBC 2.57 M/uL (4.00-6.00); RDW-CV 13.6 % (11.9-14.6); WBC 13.3 K/uL (4.0-11.0)
[2016-11-07 04:32] LABS: PLATELET COUNT 194 K/uL (150-450)
[2016-11-07 04:48] LABS: ANION GAP 11.7 (10.0-19.0); BLOOD UREA NITROGEN 26 mg/dL (6-24); CALCIUM 7.8 mg/dL (8.5-10.5); CHLORIDE 103 mMol/L (96-110); CO2 26 mMol/L (22-32); CREATININE 0.9 mg/dL (0.6-1.3); POTASSIUM 3.7 mMol/L (3.7-5.1); SODIUM 137 mMol/L (135-145)
[2016-11-09] MEDS ORDERED: CORDARONE,PACE200 MG PO (09:32)
[2016-11-09] MEDS ORDERED: LIPITOR80 MG PO (09:33)
[2016-11-09] MEDS ORDERED: COREG 3.1253.125 MG PO (09:33)
[2016-11-09] MEDS ORDERED: COLACE100 MG PO (09:35)
[2016-11-09] MEDS ORDERED: COLCHICINE0.6 MG PO (09:36)
[2016-11-09] MEDS ORDERED: INSPRA25 MG PO (09:37)
[2016-11-09] MEDS ORDERED: PRINIVIL (ZESTRI5 MG PO (09:40)
[2016-11-09] MEDS ORDERED: MILK OF MA400 MG/5 M PO (09:44)
[2016-11-09] MEDS ORDERED: NORCO 5-325 TA1 EACH PO (09:46)
[2016-12-05] MEDS ORDERED: LASIX20 MG PO (11:48)
[2016-12-05] MEDS ORDERED: ENTRESTO 24 MG1 EACH PO (11:48)
[2016-12-05] MEDS ORDERED: ALDACTONE25 MG PO (11:49)
[2016-12-05] MEDS ORDERED: K-TAB ER20 MEQ PO (11:50)
[2016-12-05] MEDS ORDERED: ULTRAM50 MG PO (11:51)
[2016-12-05] MEDS ORDERED: ZYRTEC10 M3 PO (11:51)
[2016-12-07] MEDS ORDERED: BRILINTA90 MG PO (08:21)
== END 2016-11-09 10:45 | disposition disaster alternative care site (69) | DRG 233 ==
LOC: EDSTATUS 14:30 → GPCU 14:30 → GICU 15:09 → GPCU 15:09 → GICU 11-03 07:40 → GPCU 11-04 14:26
PROVIDERS: Internal Medicine Interventional Cardiology; Thoracic Surgery (Cardiothoracic Vascular Surgery); ADMIT Internal Medicine Cardiovascular Disease
PROC: B2151ZZ Fluoroscopy of Left Heart using Low Osmolar Contrast (ICD-10-PCS; principal; 2016-11-01)
PROC: 4A023N7 Measurement of Cardiac Sampling and Pressure, Left Heart, Percutaneous Approach (ICD-10-PCS; principal; 2016-11-01)
PROC: B2111ZZ Fluoroscopy of Multiple Coronary Arteries using Low Osmolar Contrast (ICD-10-PCS; principal; 2016-11-01)
PROC: 30233M1 Transfusion of Nonautologous Plasma Cryoprecipitate into Peripheral Vein, Percutaneous Approach (ICD-10-PCS; 2016-11-03)
PROC: 0213099 Bypass Coronary Artery, Four or More Arteries from Left Internal Mammary with Autologous Venous Tissue, Open Approach (ICD-10-PCS; 2016-11-03)
PROC: B543ZZA Ultrasonography of Right Jugular Veins, Guidance (ICD-10-PCS; 2016-11-03)
PROC: 4A133B3 Monitoring of Arterial Pressure, Pulmonary, Percutaneous Approach (ICD-10-PCS; 2016-11-03)
PROC: 30233R1 Transfusion of Nonautologous Platelets into Peripheral Vein, Percutaneous Approach (ICD-10-PCS; 2016-11-03)
PROC: 03HB33Z Insertion of Infusion Device into Right Radial Artery, Percutaneous Approach (ICD-10-PCS; 2016-11-03)
PROC: 05HM33Z Insertion of Infusion Device into Right Internal Jugular Vein, Percutaneous Approach (ICD-10-PCS; 2016-11-03)
DX: I21.4 Non-ST elevation (NSTEMI) myocardial infarction (principal); I50.43 Acute on chronic combined systolic (congestive) and diastolic (congestive) heart failure; D62 Acute posthemorrhagic anemia; I25.110 Atherosclerotic heart disease of native coronary artery with unstable angina pectoris; E78.5 Hyperlipidemia, unspecified; I25.5 Ischemic cardiomyopathy; Z95.810 Presence of automatic (implantable) cardiac defibrillator; R73.9 Hyperglycemia, unspecified; F43.9 Reaction to severe stress, unspecified
CPT/HCPCS: C1894; J0171; J0282; J0690; J0885; J1170; J1644; J1650; J1940; J2150; J2250; J2270; J2405; J2440; J2720; J3010; J3475; J3480; J3490; J7030; J7040; J7050; J7060; J7121; P9012; P9035; P9045; P9047

== ENCOUNTER 2016-11-13 10:35 | Observation (INO) | payer BC ==
[~2016-11-13] VITALS: Ht 172.7 cm; Wt 88.6 kg
--- NOTE | ~2016-11-13 | ECHO ---
Transthoracic Echocardiography Report (TTE) Demographics Patient Name DAVID MCKEON Date of Study 11/13/2016 Patient Number [id number] Visit Number [id number] Date of 1955 Room Number G6308 Accession Number [id number] Gender Male Age 61 year(s) Referring Js Byrne Assembling Motor Builder Finesse Motta RDCS, Physician RVT, RDMS, CAST IRON DRAIN PIPE LAYER Physician Interpreting Opal Sams MD Web Development Instructor Physician Supervising Ordering Js Byrne MD, MD/MLP Physician Nurse Stress Car Shunter Medications Reviewed with Patient prior to Procedure. Conclusions Summary Technically difficult exam. The estimated left ventricular ejection fraction is 15-20%. The left ventricle is mildly dilated . Severely depressed left ventricular systolic function with numerous wall motion abnormalities and scarring of the interventricular septum from prior infarction. The basilar lateral, posterolateral, and inferior saba appear to contract the best. The left ventricle is mildly dilated . Normal left ventricular wall thickness. Diastolic assessment reveals Grade I diastolic dysfunction. Severely depressed left ventricular systolic function with numerous wall motion abnormalities and scarring of the interventricular septum from prior infarction. The basilar lateral, posterolateral, and inferior saba appear to contract the best. Estimated ejection fraction is 15 - 20 % Normal tricuspid valve structure and function. Trivial tricuspid regurgitation by color Doppler. There is mild pulmonary hypertension. The pulmonary pressure (RVSP) is 38 mmHg. Trivial posterior pericardial effusion. There is no echocardiographic evidence of cardiac tamponade. Left pleural effusion noted. Procedure Type of Study TTE procedure:2D Echocardiogram, M-Mode, Doppler , Color Doppler, Contrast study, Echo with Contrast. Procedure Date Date: 11/13/2016 Start: 04:57 PM Study Location: Inpatient Portable Technical Quality: Poor visualization due to post op heart surgery. Additional Indications:Post CABG x 5, SOB new onset. Appropriate Use Criteria: 9 Patient Status: BERYL Contrast Medium: Definity. Amount - 6 ml HR: 83 bpm BP: 123/71 mmHg Allergies - Other:(Cefadroxil). M-Mode/2D Measurements LV Diastolic Dimension: 5.9 cm LV Systolic Dimension: 4.77 cm LV Septum Diastolic: 0.88 cm LV PW Diastolic: 0.79 cm AO Root Dimension: 3.1 cm Cardiac Output: 5.92 l/min AV Cusp Separation: 2.2 cm RV Diastolic Dimension: 2.22 cm LA volume: 38 ml LVOT: 2.1 cm RV Base: 3 cm LVOT VTI: 20.6 cm RV Mid: 2.2 cm LV Stroke volume: 71.31 ml TAPSE: 2.1 cm TDI-S': 13 cm/s Doppler Measurements AV Peak Velocity: 1.33 m/s MV Peak E-Wave: 0.62 m/s AV Peak Gradient: 7.08 mmHg MV Peak A-Wave: 0.84 m/s AV Mean Gradient: 4 mmHg MV E/A Ratio: 0.73 LVOT Peak Velocity: 1.22 m/s MV P1/2t: 113 msec TR Gradient:30.25 mmHg PV Peak Velocity: 1.32 m/s Estimated RAP:8 mmHg PV Peak Gradient: 6.97 mmHg Estimated RVSP: 38 mmHg Estimated PASP: 38.25 mmHg E' Septal Velocity: 0.05 m/s A' Septal Velocity: 0.07 m/s E' Lateral Velocity: 0.07 m/s A' Lateral Velocity: 0.07 m/s Findings Left Ventricle The left ventricle is mildly dilated . Normal left ventricular wall thickness. Diastolic assessment reveals Grade I diastolic dysfunction. Severely depressed left ventricular systolic function with numerous wall motion abnormalities and scarring of the interventricular septum from prior infarction. The basilar lateral, posterolateral, and inferior saba appear to contract the best. Estimated ejection fraction is 15 - 20 % Right Ventricle Normal right ventricle structure and function. Device lead noted in the right ventricle. Left Atrium Normal left atrial size. Right Atrium Normal right atrial size. Device lead seen in the right atrium. Mitral Valve Mild calcification of the mitral valve. Trivial mitral regurgitation by color Doppler. Aortic Valve The aortic valve is mildly sclerotic. Tricuspid Valve Normal tricuspid valve structure and function. Trivial tricuspid regurgitation by color Doppler. There is mild pulmonary hypertension. The pulmonary pressure (RVSP) is 38 mmHg. Pulmonic Valve Normal pulmonic valve structure and function. Trivial pulmonic valve regurgitation by color Doppler. Pericardial Effusion Trivial posterior pericardial effusion. There is no echocardiographic evidence of cardiac tamponade. Miscellaneous Visualized portions of the aortic root and ascending aorta appear normal in size. Pleural Effusion Left pleural effusion noted. Signature dtt: Latrell Joseph (cardio) dtd: 11/13/16 1657 Physician Self Edit
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
[~2016-11-13 10:35] MED LIST changes: +COLACE100 MG PO; +COLCHICINE0.6 MG PO; +CORDARONE,PACE200 MG PO; +COREG 3.1253.125 MG PO; +INSPRA25 MG PO; +LIPITOR80 MG PO; +MELATONIN10 M2 PO; +MILK OF MA400 MG/5 M PO; +NEXIUM 24HR20 M1 PO; +NORCO 5-325 TA1 EACH PO; +PRINIVIL (ZESTRI5 MG PO
[2016-11-14] MEDS ORDERED: COZAAR50 MG PO (12:14)
[2016-11-14] MEDS ORDERED: PAXIL20 MG PO (12:18)
[2016-11-14] MEDS ORDERED: MUCINEX600 MG PO (12:20)
[2016-11-14] MEDS ORDERED: TRAZODONE HCL50 MG PO (12:23)
[2016-12-05] MEDS ORDERED: LASIX20 MG PO (11:48)
[2016-12-05] MEDS ORDERED: ENTRESTO 24 MG1 EACH PO (11:48)
[2016-12-05] MEDS ORDERED: ALDACTONE25 MG PO (11:49)
[2016-12-05] MEDS ORDERED: K-TAB ER20 MEQ PO (11:50)
[2016-12-05] MEDS ORDERED: ZYRTEC10 M3 PO (11:51)
[2016-12-05] MEDS ORDERED: ULTRAM50 MG PO (11:51)
[2016-12-07] MEDS ORDERED: BRILINTA90 MG PO (08:21)
== END 2016-11-14 13:45 | disposition disaster alternative care site (69) ==
LOC: GPCU 12:11
PROVIDERS: Thoracic Surgery (Cardiothoracic Vascular Surgery); ADMIT Internal Medicine
DX: R06.02 Shortness of breath (principal); I21.4 Non-ST elevation (NSTEMI) myocardial infarction; J90 Pleural effusion, not elsewhere classified; E78.5 Hyperlipidemia, unspecified; F41.8 Other specified anxiety disorders; I10 Essential (primary) hypertension; I25.10 Atherosclerotic heart disease of native coronary artery without angina pectoris; Z95.5 Presence of coronary angioplasty implant and graft; I25.5 Ischemic cardiomyopathy; Z87.891 Personal history of nicotine dependence
CPT/HCPCS: C8929; Q9957

== ENCOUNTER → 2016-11-23 | Outpatient (CLI) | payer OTHER ==
[~2016-11-23] MED LIST changes: +ALDACTONE25 MG PO; +BRILINTA90 MG PO; +COZAAR50 MG PO; +ENTRESTO 24 MG1 EACH PO; +K-TAB ER20 MEQ PO; +LASIX20 MG PO; +MUCINEX600 MG PO; +PAXIL20 MG PO; +TRAZODONE HCL50 MG PO; +ZYRTEC10 M3 PO
[2016-11-23 13:12] LABS: BASOPHIL # 0.1 K/uL (0.0-0.2); EOSINOPHIL # 0.3 K/uL (0.0-0.5); EOSINOPHIL % 3.8 %; HEMOGLOBIN 13.7 g/dL (12.0-17.0); IMMATURE GRANULOCYTE % 0.5 %; LYMPHOCYTE # 1.6 K/uL (0.8-4.0); LYMPHOCYTE % 18.4 %; MONOCYTE # 0.6 K/uL (0.0-1.0); MPV 10.3 fl (9.4-12.4); NEUTROPHIL % 69.3 %; NRBC % 0 /100WBC (0-0.00); RDW-CV 14.6 % (11.9-14.6); WBC 8.6 K/uL (4.0-11.0)
[2016-11-23 13:13] LABS: HEMATOCRIT 42.5 % (37.0-53.0); MCH 29.7 pg (27.0-34.0); MCHC 32.2 gm/dL (32.0-36.5); PLATELET COUNT 414 K/uL (150-450); RBC 4.62 M/uL (4.00-6.00)
[2016-11-23 13:28] LABS: ALBUMIN 3.5 gm/dL (3.5-5.0); ANION GAP 12.2 (10.0-19.0); CALCIUM 9.3 mg/dL (8.5-10.5); CREATININE 1.1 mg/dL (0.6-1.3); POTASSIUM 4.2 mMol/L (3.7-5.1); TOTAL PROTEIN 7.3 g/dL (6.0-8.4)
[2016-11-23 13:29] LABS: TOTAL BILIRUBIN 0.8 mg/dL (0.0-1.5)
[2016-11-23 16:35] LABS: CPK 52 IU/L (35-332)
== END ==
LOC: LNHI 13:06
PROVIDERS: Nurse Practitioner Women's Health
DX: I25.10 Atherosclerotic heart disease of native coronary artery without angina pectoris (principal); R53.83 Other fatigue; I10 Essential (primary) hypertension

== ENCOUNTER → 2016-11-24 | Outpatient (CLI) | payer BC | END | disposition disaster alternative care site (69) | LOC: GRAD 11:49 | DX: R06.02 Shortness of breath (principal); R79.89 Other specified abnormal findings of blood chemistry; J98.11 Atelectasis; J90 Pleural effusion, not elsewhere classified ==

== ENCOUNTER → 2016-11-30 | Outpatient (CLI) | payer BC ==
--- NOTE | ~2016-11-30 | ESTC ---
Cardiac Perfusion Imaging Demographics Patient Name MIKE Juárez Gender Male Patient Number [id number] Race Visit Number [id number] [place] [id number] Room Number Accession Number [id number] Height 68 inches Date of 1955 Weight 195 pounds Interpreting ERASMO Cosby Date of study 11/30/2016 Physician Zeina Eaton MD Supervising MD/MLP Kelly SANTOS Technologist Mike Howard MD Ordering Physician Kelly Juárez A isotope technician Stress ECG Reading Kelly Morgan Nurse Chuck Monroe RN Physician A MD Dwain Florian RN Procedure Admit Source:Other. Procedure Type: Nuclear Stress Test:Pharmacological, Lexiscan, Cardiolite Stress Test Procedure Start time: 11/30/2016 09:00 Indications: Post-CABG and Ischemic Cardiomyopathy. Risk Factors The patient risk factors include:prior PCI on 03/27/2008;prior CABG on 11/03/2016;former tobacco use, treated hypercholesterolemia, treated hypertension, dyslipidemia and ( years not smokin). Conclusions Impression ECG portion of the lexiscan stress test is clinically negative for ischemia by diagnostic criteria. Myocardial perfusion imaging is severely abnormal. The images reveal a mostly fixed defect in the entire anterior wall, apex and inferior wall consistent with infarct . Perfusion is best at rest and post stress only in the lateral wall. Overall left ventricular systolic function was abnormal. Calculated LVEF is 25% with severe LV hypokinesis/akinesis, with regional wall motion abnormalities, lateral wall moves best. TID ratio is 1.13. LV is severely dilated with EDV of 215 mls. This is a high risk stress test. Stress Protocols Resting ECG SR ASMI Pre-stress physical exam: Patient assessed by Dr Mendoza prior to testing. Stress Protocol:Pharmacologic Predicted HR: 161 bpm ECG Findings No ECG changes suggestive of ischemia. Arrhythmias No rhythm abnormality. Symptoms Shortness of breath. Stress Interpretation Appropriate hemodynamic response to Lexiscan. No significant ST-T wave changes with Lexiscan. ECG portion is negative for ischemia by diagnostic criteria. Imaging Results Applied corrections - Motion correction applied High risk findings Summed scores - Summed stress score: 24 - Summed rest score: 21 - Summed difference score: 3 Stress ejection Ejection fraction:25 % EDV :215 ml ESV :162 ml Stroke volume :53 ml LV mass :201 gr Imaging Protocols Rest Stress Isotope:Tc99m Sestamibi IV Isotope: Tc99m Sestamibi IV Isotope dose:14.5 mCi Isotope dose:46 mCi Date:11/30/2016 07:10 Date:11/30/2016 09:26 Technique: SPECT Technique: Gated Supine SPECT Supine Scan Time:45-60 minutes post Scan Time:45-60 minutes post injection injection Procedure Medications - Regadenoson (Lexiscan) 0.4 mg IV over 10-15 sec. I.V. 0.4 mg. Medical History Admission Data Admission date: 11/30/2016 Admission Time: 06:37 Hospital Status: Outpatient. Signatures dtt: NIGEL KUMAR dtd: 11/30/16 0900 Physician Self Edit
== END | disposition disaster alternative care site (69) ==
LOC: GRAD 06:37
DX: I25.10 Atherosclerotic heart disease of native coronary artery without angina pectoris (principal); I10 Essential (primary) hypertension; E78.00 Pure hypercholesterolemia, unspecified; R93.1 Abnormal findings on diagnostic imaging of heart and coronary circulation; R29.898 Other symptoms and signs involving the musculoskeletal system; I51.7 Cardiomegaly; Z86.79 Personal history of other diseases of the circulatory system; Z95.1 Presence of aortocoronary bypass graft; Z87.891 Personal history of nicotine dependence
CPT/HCPCS: A9500; J2785